=== PATIENT | male | born 1980 | race African-American/Black ===

== ENCOUNTER 2018-06-08 13:04 | Emergency (ER) | payer MEDICAID | END 2018-06-08 15:01 | disposition home or self-care (01) | LOC: FTE 13:04 | DX: R21 Rash and other nonspecific skin eruption (principal); Z87.891 Personal history of nicotine dependence | CPT/HCPCS: 99283 ==

== ENCOUNTER 2018-06-12 15:47 | Emergency (ER) | payer MEDICAID | END 2018-06-12 19:22 | disposition home or self-care (01) | LOC: FTE 15:47 | DX: R21 Rash and other nonspecific skin eruption (principal); Z87.891 Personal history of nicotine dependence | CPT/HCPCS: 99283; Z7502 ==